=== PATIENT | female | born 1975 | race Caucasian/White ===

== ENCOUNTER 2017-03-12 23:42 | Emergency (ER) | payer BC ==
[~2017-03-12] VITALS: Ht 172.7 cm; Wt 63.5 kg
--- NOTE | 2017-03-13 | NUR ---
TO BED 21 A 41 YO FEMALE BIBSELF AND PT C/O VAGINAL BLEEDING WITH CLOTS X 12 HOURS PT STATES SHE IS 7.5 WEEKS. PATIENT ALSO REPORTED THAT SHE IS HAVING "VERY BAD ABDOMINAL CRAMPING" AND WAS TOLD BY OB TO GO TO ER FOR EVAL. THIS IS PATIENT'S FIRST , NO CLOTS NOTED, "JUST A GUSH OF RED BLOOD LIKE DURING MESTRUATION AND SLIGHT BLEEDING AT THIS TIME." PATIENT IS AAOX4, AMBULATORY WITH STEADY GAIT. VSS. NO S/S OF ACUTE DISTRESS. GOWNED. INITIATED COMFORT MEASURES. AWAITING FOR ER MD RENDON.
[2017-03-13 00:34] LABS: BASOPHILS # (AUTO) 0.1 /CMM (0.0-0.2); BASOPHILS % (AUTO) 0.5 % (0.0-2.0); EOSINOPHILS # (AUTO) 0.2 /CMM (0.0-0.7); EOSINOPHILS % (AUTO) 1.3 % (0.0-6.0); HEMATOCRIT 41 % (33-45); HEMOGLOBIN 13.8 g/dL (11.5-14.8); LYMPHOCYTES # (AUTO) 2.1 /CMM (0.8-4.8); LYMPHOCYTES % (AUTO) 18.4 % (20.0-44.0); MEAN CORPUSCULAR HEMOGLOBIN 30 PG (26.0-33.0); MEAN CORPUSCULAR HGB CONC 34 g/dl (31.0-36.0); MEAN CORPUSCULAR VOLUME 89 fL (82-100); MONOCYTES # (AUTO) 0.6 /CMM (0.1-1.30); MONOCYTES % (AUTO) 4.7 % (2.0-12.0); NEUTROPHILS # (AUTO) 8.8 /CMM (1.8-8.9); NEUTROPHILS % (AUTO) 75.1 % (43.0-81.0); PLATELET COUNT (AUTO) 181 /CMM (150-450); RDW COEFFICIENT OF VARIATION 12.6 (11.5-15.0); RED BLOOD CELL COUNT(AUTO) 4.55 MIL/uL (4.0-5.2); WHITE BLOOD COUNT (AUTO) 11.7 K/uL (4.3-11.0)
[2017-03-13 00:41] LABS: CALCIUM, SERUM 8.8 mg/dL (8.5-10.1); CREATININE 0.7 mg/dL (0.6-1.3)
[2017-03-13 00:46] LABS: POTASSIUM 3.8 mmol/L (3.5-5.1)
[2017-03-13 01:39] LABS: APPEARANCE,URINE CLEAR (CLEAR); BILIRUBIN,URINE NEGATIVE (NEGATIVE); BLOOD, URINE 3+ Ery/uL (NEGATIVE); COLOR,URINE YELLOW (YELLOW); KETONES,URINE NEGATIVE (NEGATIVE); LEUKOCYTE ESTERASE ,URINE NEGATIVE (NEGATIVE); NITRITE, URINE NEGATIVE (NEGATIVE); PROTEIN,URINE NEGATIVE (NEGATIVE); UGLUCOSE NEGATIVE (NEGATIVE); UROBILINOGEN,URINE 0.2 EU/dL (0.2)
[2017-03-13 01:50] LABS: BACTERIA,URINE 1+ /HPF (None Seen); SQUAMOUS EPITHELIAL CELL,UR Rare /HPF (None Seen); WBC,URINE NONE SEEN /HPF (0-3)
[2017-03-13] MEDS ORDERED: NITROFURANTOIN/NITROFURAN MAC 100 MG CAPSULE ONE (01:55)
[2017-03-13] MEDS ORDERED: NITROFURANTOIN/NITROFURAN MAC 100 MG CAPSULE PO ONE (02:00)
--- NOTE | 2017-03-13 03:20 | NUR ---
Patient discharged to home in stable condition. Written and verbal after care instructions given. Patient verbalizes understanding of instruction. Patient is ambulatory with steady gait. Patient said she is going to see her OB and have an jacinta on wednesday.
[2017-03-13 03:41] VITALS: BP 115/69
== END 2017-03-13 03:42 | disposition home or self-care (01) ==
LOC: ER 23:47
DX: O23.41 Unspecified infection of urinary tract in pregnancy, first trimester (principal); Z88.5 Allergy status to narcotic agent; Z3A.08 8 weeks gestation of pregnancy
CPT/HCPCS: 36415; 76856-TC; 80048-TC; 81000-TC; 84702-TC; 85025-TC; A4606; Z7610